=== PATIENT | female | born 1970 ===

== ENCOUNTER 2016-09-17 06:48 | Day surgery (SDC) | payer OTHER ==
[2016-09-17 07:18] VITALS: BMI 31.2
--- NOTE | 2016-09-17 08:16 | CP.SDSHP ---
Same Day Surgery H & P - History Proposed Procedure: EGD Pre-Op Diagnosis: SEE NOTES - Previous Medical/Surgical History Misc: Other Pain: 4.Moderate Pain - Allergies Allergies: Allergies No Known Allergies Allergy (Verified 09/17/16 07:18) - Physical Exam General Appearance: N Vital Signs: Vital Signs 09/17/16 07:33 Temperature 99 F Pulse Rate 75 Respiratory 19 Rate Blood Pressure 117/70 O2 Sat by Pulse 99 Oximetry Mental Status: Alert & Oriented x3 Neuro: WNL Heart: WNL Lungs: WNL GI: Other - {Optional Preform as Required} Breast: WNL Abdomen: Other Rectal: Other Integument: WNL : WNL Ortho: WNL ENT: WNL - Impression Pt. Evaluated Today:Candidate for Anesthesia & Procedure: Yes - Date & Time Time: 08:16 Short Stay Discharge - Short Stay Discharge Admitting Diagnosis/Reason for Visit: DYSPEPSIA Disposition: HOME/ ROUTINE
[2016-09-17] MEDS ORDERED: Belladonna-Phenobarbital PO STA (08:17)
[2016-09-17] MEDS ORDERED: Pantoprazole 40 mg EC Tab PO STA (08:18)
[2016-09-17] MEDS ORDERED: Propofol 10 mg/ml Inj (20 ML) ONE (08:20)
[2016-09-17] MEDS ORDERED: Lidocaine Hydrochloride 10 ML INJ ONE (08:24)
[2016-09-17 08:54] VITALS: RESP 14; TEMP 98
[2016-09-17 10:02] VITALS: BP 100/61; PULSE 66; O2SAT 96
== END 2016-09-17 09:40 | disposition home or self-care (01) ==
LOC: C.ENDO 06:48
PROVIDERS: ATTEND Specialist
DX: K21.0 Gastro-esophageal reflux disease with esophagitis (principal); K29.70 Gastritis, unspecified, without bleeding; K29.80 Duodenitis without bleeding
CPT/HCPCS: 43239; 84703; 88305; J2704; J3010

== ENCOUNTER 2016-09-18 13:15 | Emergency (ER) | payer OTHER ==
[2016-09-18 13:15] VITALS: BMI 31.2
--- NOTE | 2016-09-18 14:40 | C.PDOC ---
History Of Present Illness <Rosi Trujillo - Last Filed: 09/18/16 18:49> <Jignesh Piedra E - Last Filed: 09/18/16 21:24> 46 y/o female c/o epigastric pain one day after having an endoscopy . pt sts pain started today at 10 am, radiates to both sides upper abdomen, with mild nausea, no vomiting, no fever or chills. pain was worse after eating banana and toast. no diarrhea. abdomen does not feel bloated to patient. (Rosi Trujillo) History Per: Patient History/Exam Limitations: no limitations Onset/Duration Of Symptoms: Hrs (5) Current Symptoms Are (Timing): Still Present Context: Other Severity: Moderate Location Of Pain/Discomfort: Epigastric Quality Of Discomfort: Sharp Associated Symptoms: Nausea. denies: Fever, Chills, Vomiting, Diarrhea Exacerbating Factors: Food Last Bowel Movement: Today <Rosi Trujillo - Last Filed: 09/18/16 18:49> <Jignesh Piedra E - Last Filed: 09/18/16 21:24> Time Seen by Provider: 09/18/16 13:53 Chief Complaint (Nursing): Abdominal Pain Past Medical History Reviewed: Historical Data, Nursing Documentation, Vital Signs - Medical History PMH: Gastritis Denies: Chronic Kidney Disease Surgical History: Appendectomy, Endoscopy (09/17/2016) Family History: States: Unknown Family Hx - Social History Hx Tobacco Use: No Hx Alcohol Use: No Hx Substance Use: No - Immunization History Hx Tetanus Toxoid Vaccination: No Hx Influenza Vaccination: No Hx Pneumococcal Vaccination: No <Rosi Trujillo - Last Filed: 09/18/16 18:49> Vital Signs: Last Vital Signs Temp 98.7 F 09/18/16 17:53 Pulse 80 09/18/16 17:53 Resp 18 09/18/16 17:53 BP 103/66 09/18/16 17:53 Pulse Ox 100 09/18/16 18:49 Review Of Systems Constitutional: Negative for: Fever, Chills Cardiovascular: Negative for: Chest Pain, Palpitations Respiratory: Negative for: Cough, Shortness of Breath Gastrointestinal: Positive for: Nausea, Abdominal Pain. Negative for: Vomiting , Diarrhea Genitourinary: Negative for: Dysuria, Frequency Neurological: Negative for: Weakness, Numbness <Rosi Trujillo - Last Filed: 09/18/16 18:49> Physical Exam - Physical Exam Appears: Non-toxic, No Acute Distress Skin: Normal Color, Warm, Dry Head: Atraumatic, Normacephalic Oral Mucosa: Moist Neck: Normal ROM Chest: Symmetrical, No Deformity, No Tenderness Cardiovascular: Rhythm Regular Respiratory: Normal Breath Sounds, No Rales, No Rhonchi, No Wheezing Gastrointestinal/Abdominal: Normal Exam, Bowel Sounds, Soft, Tenderness ( epigastric area only), No Distention, No Guarding, No Rebound Neurological/Psych: Oriented x3, Normal Speech, Normal Cognition, Normal Motor, Normal Sensation <Rosi Trujillo - Last Filed: 09/18/16 18:49> ED Course And Treatment - Laboratory Results Result Diagrams: 09/18/16 14:52 09/18/16 14:52 O2 Sat by Pulse Oximetry: 100 <Rosi Trujillo - Last Filed: 09/18/16 18:49> - Laboratory Results Result Diagrams: 09/18/16 14:52 09/18/16 14:52 - CT Scan/US CT abdomen/pelvis Other Rad Studies (CT/US): Read By Radiologist, Radiology Report Reviewed CT/US Interpretation: No evidence of bowel obstruction. No free peritoneal gas or fluid. Uterine fibroid. Left ovarian cyst. Progress Note: Pt was signed out to me by MEEK Trujillo/Dr. Stephenson to f/up CT scan results. Pt feels better and wants to go home. Reassessment Condition: Improved <Jignesh Piedra - Last Filed: 09/18/16 21:24> Medical Decision Making <Rosi Trujillo - Last Filed: 09/18/16 18:49> <Jignesh Piedra E - Last Filed: 09/18/16 21:24> Medical Decision Makin46 y/o female with epigastric pain 1 days s/p endoscopy- worse after food; discussed with Dr Gavin. will get reglan and peocid ivf, labs,. do abdoninal sonogram 411 pm pt feeling better, only mild tenderness present on re-exam of abdomen, no acute findings on us. will give maalox. await axr results. blood tests normal 537 pm pt still with abdominal pain, more on right side. some dilated loops of bowel seen on axr. will get ct scan abdomen (Rosi Trujillo) Disposition <Rosi Trujillo - Last Filed: 09/18/16 18:49> Counseled Patient/Family Regarding: Studies Performed, Diagnosis, Need For Followup, Rx Given - Disposition Disposition Time: 21:22 <Jignesh Piedra - Last Filed: 09/18/16 21:24> - Disposition Referrals: Jona Gavin [Staff Provider] - Disposition: HOME/ ROUTINE Condition: IMPROVED Additional Instructions: Follow up with your doctor. Return to the ER if you develop fever, vomiting, bleeding, worsening of symptoms or if you have any other concerns. Prescriptions: Pantoprazole Sodium [Protonix] 40 mg PO DAILY #14 ect Metoclopramide [Reglan] 1 tab PO TID PRN #15 tab PRN Reason: Nausea/Vomiting Instructions: Gastritis (ED) Print Language: SYRIAC - Clinical Impression Clinical Impression: Gastritis Physician Patient Turnover Patient Signed Over To: Jignesh Piedra Handoff Comments: f/u ct scan results and dispo accordingly <Rosi Trujillo - Last Filed: 09/18/16 18:49>
[2016-09-18 15:02] LABS: BASO % 0.5 % (0.0-2.0); EOS # 0.1 K/uL (0.0-0.7); EOS % 1.1 % (0.0-4.0); HEMATOCRIT 39.8 % (34.0-47.0); LYMPH # 2.2 K/uL (1.0-4.3); LYMPH % 31.4 % (20.0-40.0); MEAN CELL VOLUME 93.5 fL (81.0-99.0); MEAN CORPUSCULAR HEMOGLOBIN 30.8 pg (27.0-31.0); MEAN PLATELET VOLUME 8.4 fL (7.2-11.7); MONO # 0.4 K/uL (0.0-0.8); MONO % 5.9 % (0.0-10.0); NRBC % 0.1 % (0.0-2.0); RED CELL DISTRIBUTION WIDTH 13.7 % (11.5-14.5)
[2016-09-18 15:09] LABS: CHLORIDE 97 mmol/L (98-107)
[2016-09-18 15:10] LABS: POTASSIUM 3.5 mmol/L (3.6-5.2); SODIUM 135 mmol/L (132-148)
[2016-09-18 15:12] LABS: ALB/GLOB RATIO 1.4 (1.0-2.1); ALKALINE PHOSPHATASE 47 U/L (38-126); AMYLASE 59 U/L (30-110); AST/SGOT 32 U/L (14-36); BILIRUBIN,TOTAL 0.4 mg/dL (0.2-1.3); BLOOD UREA NITROGEN 9 mg/dL (7-17); CALCIUM 8.1 mg/dl (8.6-10.4); CARBON DIOXIDE 23 mmol/L (22-30); GFR AFRICAN-AMERICAN > 60; GLUCOSE,RANDOM 94 mg/dL (65-105)
[2016-09-18 15:13] LABS: ALT/SGPT 35 U/L (9-52)
--- NOTE | 2016-09-18 15:41 | US ---
HISTORY: epigastric apin COMPARISON: None. TECHNIQUE: Sonographic evaluation of the abdomen. FINDINGS: LIVER: Measures 16 cm. Increased echogenicity of the liver parenchyma. No intrahepatic bile duct dilatation. GALLBLADDER: The gallbladder is not abnormally distended. There is no gallbladder wall edema or pericholecystic fluid. No shadowing or echogenic calculus identified. According to the technologist, the sonographic Odom's sign was not present. COMMON BILE DUCT: Measures 4-5 mm. No stones. No dilatation. PANCREAS: Limited evaluation of the pancreas. RIGHT KIDNEY: Measures 10 x 4.6 x 5cm. Normal echogenicity. No calculus, mass, or hydronephrosis. LEFT KIDNEY: Measures 10.3 x 9.2 x 5.2cm. Normal echogenicity. No calculus, mass, or hydronephrosis. SPLEEN: Normal in size and contour. No mass. AORTA: No aneurysmal dilatation within the visualized segments of the aorta. IVC: The visualized portions of the IVC appear unremarkable. OTHER FINDINGS: The visualized segments of the portal vein appear patent. IMPRESSION: Heterogeneous echotexture of the hepatic parenchyma could be due to hepatic steatosis versus parenchymal disease. If indicated, MRI can be obtained for better evaluation. Limited evaluation of the pancreas.
--- NOTE | 2016-09-18 16:32 | RAD ---
HISTORY: s/p endoscopy with epigastric pain COMPARISON: No prior. FINDINGS: BOWEL: Few dilated loops of large bowel. Extensive stool throughout the distal colon. Air seen in the sigmoid colon. BONES: Normal. OTHER FINDINGS: None. IMPRESSION: Few dilated loops of large bowel. No definite evidence bowel obstruction. CT of abdomen pelvis should be obtained if symptoms persist.
[2016-09-18] MEDS ORDERED: Iohexol 240 (50 ml) PO STA (17:35)
[2016-09-18] MEDS ORDERED: Iohexol 240 (50 ml) ONE (17:43)
[2016-09-18 17:55] VITALS: RESP 18
[2016-09-18] MEDS ORDERED: Iohexol 350mg/ml 100 ML ONE (18:01)
[2016-09-18 21:37] VITALS: BP 113/75; PULSE 85; TEMP 98.2; O2SAT 99
--- NOTE | 2016-09-19 08:28 | CT ---
PROCEDURE: CT Abdomen and Pelvis with contrast HISTORY: upper abdominal pain s/p endoscopy COMPARISON: None. TECHNIQUE: Contrast dose: 100 mL Omnipaque 350 Radiation dose: Total exam DLP = 950.62 mGy-cm. FINDINGS: LOWER THORAX: Unremarkable. LIVER: 7 mm low-density rounded lesion at the dome of the right hepatic lobe, possibly a cyst but nonspecific. No other hepatic mass. No biliary dilatation. Normal size, contour and attenuation. GALLBLADDER AND BILE DUCTS: Unremarkable. PANCREAS: Unremarkable. No gross lesion or ductal dilatation. SPLEEN: Unremarkable. ADRENALS: Unremarkable. No mass. KIDNEYS AND URETERS: Unremarkable. No hydronephrosis. No solid mass. VASCULATURE: Unremarkable. No aortic aneurysm. BOWEL: Unremarkable. No obstruction. No gross mural thickening. APPENDIX: Not identified. PERITONEUM: No ascites. No pneumoperitoneum. LYMPH NODES: Unremarkable. No enlarged lymph nodes. BLADDER: Unremarkable. REPRODUCTIVE: Uterus significant for 4.1 cm posterior intramural fibroid. BONES: No acute fracture. OTHER FINDINGS: None. IMPRESSION: No evidence of pneumoperitoneum. 4.1 cm posterior intramural uterine fibroid. 7 mm nonspecific rounded low-attenuation lesion in dome of right hepatic lobe, possibly a cyst. No other significant abnormality. Preliminary interpretation of this examination was reported by [facility] at 8:38 p.m. on 09/18/2016. There is concurrence of this report with the preliminary interpretation.
== END 2016-09-18 21:30 | disposition home or self-care (01) ==
LOC: C.ER 13:15
DX: K29.70 Gastritis, unspecified, without bleeding (principal)
CPT/HCPCS: 74010; 74177; 76700; 80053; 82150; 83690; 85025; 96374; 96375; 99284; J2765; Q9966; Q9967